=== PATIENT | female | born 2000 | race Caucasian/White ===

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

== ENCOUNTER 2019-09-08 16:18 | Emergency (ER) | payer OTHER, SELFPAY ==
[2019-09-08 16:30] VITALS: BP 142/90; PULSE 120; RESP 16; TEMP 37.7; O2SAT 98; BMI 32.9
[2019-09-08 16:38] VITALS: BP 142/90; PULSE 120; RESP 16; TEMP 37.7; O2SAT 98; BMI 33.0
--- NOTE | 2019-09-08 16:43 | HMH.EDUTC ---
[facility] [place] Disposition Clinical Impression: Dental abscess, Pain, dental Disposition: Home, Self-Care Condition on Discharge: Good Instructions: Tooth Abscess Additional Instructions: Make sure you have an appointment coming up with your dentist. Take the medications as directed. IF YOU START TO RUN A FEVER OR HAVE WORSENING SYMPTOMS, PLEASE GO STRAIGHT TO THE ER Prescriptions: Ibuprofen [Ibuprofen 800mg Tablet] 800 mg PO Q8HP PRN #30 tab PRN Reason: Moderate Pain Transmission Status: Received by [id number] Amoxicillin [Amoxicillin 500mg Tab] 500 mg PO TID 10 Days #30 tab Transmission Status: Received by [id number] Referrals: Romero Gilman MD [Primary Care Provider] - Forms: Work/School Release Time of Disposition: 16:49 Medical Decision Making - Medical Records Medical records reviewed: No: I reviewed the patient's medical records. - Arnold Inquiry Pt receiving controlled substance: No Vital Signs: 09/08/19 16:30 09/08/19 16:38 09/08/19 17:00 Temperature 99.8 F H 99.8 F H 99.8 F H Temperature Source Oral Oral Pulse Rate 120 H Pulse Rate [Left Radial] 120 H 120 H Respiratory Rate 16 16 16 Blood Pressure 142/90 H Blood Pressure [Right Arm] 142/90 H 142/90 H Blood Pressure Mean [Right Arm] 107 107 Blood Pressure Source [Right Arm] Automatic Cuff Blood Pressure Position [Right Arm] Sitting Sitting 02 Sat by Pulse Oximetry 98 98 Oxygen Delivery Method Room Air Room Air - Lab Data Lab results reviewed: Yes: I reviewed the patient's lab results. Orders (Tests/Meds): ED MEDICATIONS Discontinued Medications Generic Name Dose Route Start Last Admin Trade Name Freq PRN Reason Stop Dose Admin Ceftriaxone Sodium 1 gm 09/08/19 16:42 09/08/19 16:55 Rocephin 1gm Vial IM 09/08/19 16:43 1 gm ONCE ONE Administration Protocol Lidocaine HCl 0 ml 09/08/19 16:42 09/08/19 16:55 Lidocaine 1% 10ml Mdv IM 09/08/19 16:43 2.1 ml ONCE ONE Administration [facility] [place] HPI - General Stated complaint: absess tooth Time Seen by Provider: 09/08/19 16:43 Mode of Arrival: Ambulatory Source of Information: Patient Limitations: No Limitations Description of Symptoms (Recalled from Triage Doc. by RN): to ed per pvt car with c/o rt side facial pain and swelling states I think I have an abscessed tooth starting th. - History of Present Illness Provider Complaint: She c/o right upper jaw dental pain and swollen gums. She thinks that she has a dental abscess. She has an appointment with her dentist, but its not until 1 week away. She denies any fever or chills. - Related Data Previous Rx's Medication Instructions Recorded Amoxicillin [Amoxicillin 500mg Tab] 500 mg PO TID 10 Days #30 tab 09/08/19 Ibuprofen [Ibuprofen 800mg 800 mg PO Q8HP PRN #30 tab 09/08/19 Tablet] Allergies Allergy/AdvReac Type Severity Reaction Status Date / Time No Known Drug Allergies Allergy Unknown Verified 12/25/17 22:37 [NKDA] [facility] History - Hepatitis A Screen Attestation statement:: This patient has been screened for Hepatitis A risk factors. I have reviewed the patient's past medical history: Yes - Social History Alcohol Intake: never ROS Obtained: Yes All systems reviewed & no additional complaints - Constitutional Constitutional: Denies chills, Denies fever(s) - Eyes Eyes: Denies eye discharge - ENT Ears, Nose, Mouth, and Throat: Reports as per HPI - Cardiovascular Cardiovascular: Denies chest pain - Respiratory Respiratory: No chest congestion, No cough, No dyspnea, No coughing up blood, No stridor, No wheezing Physical Exam - General General appearance: alert, in no apparent distress - Head Head exam: atraumatic, normocephalic, normal inspection - Eye Eye exam: Present: normal appearance, PERRL, EOMI - ENT ENT exam: Present: normal exam, normal oropharynx, mucous membranes moist, TM's normal bilaterall
[2019-09-08 17:00] VITALS: BP 142/90; PULSE 120; RESP 16; TEMP 37.7; O2SAT 98
== END 2019-09-08 17:05 | disposition home or self-care (01) ==
PROVIDERS: Emergency Provider Nurse Practitioner Family; PCP Family Medicine
DX: K04.7 Periapical abscess without sinus (principal)
CPT/HCPCS: 96372; 99201

== ENCOUNTER 2020-01-20 16:31 | Emergency (ER) | payer OTHER, SELFPAY ==
[2020-01-20 16:42] VITALS: BP 140/96; PULSE 100; RESP 18; TEMP 36.9; O2SAT 98; BMI 33.3
--- NOTE | 2020-01-20 16:46 | HMH.EDUTC ---
[facility] Disposition Clinical Impression: Viral upper respiratory infection, Encounter for laboratory testing for COVID-19 virus Disposition: Home, Self-Care Condition on Discharge: Good Instructions: Common Cold, DI for Viral Upper Respiratory Infection -- Adult, Preventing the Spread of Coronavirus Discharge Instructions Additional Instructions: *Monitor Temp, Over the counter Motrin or Tylenol as directed/as needed Tylenol every 4 hours and Motrin every 6 hours (as long as your family doctor has told you that you can take it) for fever or pain. and straight to ER if unable to lower temp less than 101.0 after medication given *Warm salt water gargles may help to soothe the throat *Throat Lozenges *Warm fluids like tea with honey may help to soothe the throat *Sleep elevated *Humidifier/Vaporizer *Flonase 2 sprays in each nostril daily but be aware that it may take 2-3 days before you notice improvement *Bromfed may cause drowsiness. Know how it effects you (your child) before driving, caring for small child, or sending your child to school. Not other antihistamines/allergy medications while taking bromfed Your throat swab was sent for culture. Those results are typically sent to your primary care. Be sure to follow up in 2-3 days with your family doctor/primary care physician if no improvement so they can review those result and treat if necessary. If you don?t have a primary care doctor, I recommend you get one but in the mean time, you will have to return to a walk in clinic Follow up IMMEDIATELY for new or worsening symptoms or no Noticeable improvement over the next 48-72 hours. 911 for difficulty breathing or swallowing You was tested for today for COVID19 your test result should be back later this evening, you may call back later this evening to see if your test results are back and the result You was given a handout with instructions for Self Quarantine and Self isolation for while you wait on test results and what to do if they are positive Prescriptions: Fluticasone Propionate [Flonase 50mcg nasal spray 16gm] 1 spr NS DAILY #1 bottle Transmission Status: Received by [id number] Referrals: Romero Gilman MD [Primary Care Provider] - As needed Forms: Work/School Release Time of Disposition: 16:56 Medical Decision Making - Arnold Inquiry Pt receiving controlled substance: No Arnold was queried for this patient: No Vital Signs: 01/20/20 16:42 Temperature 98.5 F Temperature Source Oral Pulse Rate [Radial] 100 H Respiratory Rate 18 Blood Pressure [Right Arm] 140/96 H Blood Pressure Mean [Right Arm] 110 Blood Pressure Source [Right Arm] Automatic Cuff Blood Pressure Position [Right Arm] Sitting 02 Sat by Pulse Oximetry 98 Oxygen Delivery Method Room Air - Lab Data Lab results reviewed: Yes: I reviewed the patient's lab results. Orders (Tests/Meds): ORDERS Category Date Time Status Covid-19 Nasal PCR ([facility]) Routine Lab 01/20/20 16:50 Received [facility] HPI - General Stated complaint: Fever, sore throat, headache Time Seen by Provider: 01/20/20 16:46 Mode of Arrival: Ambulatory Source of Information: Patient Limitations: No Limitations Description of Symptoms (Recalled from Triage Doc. by RN): felt feverish yesterday, sore throat, nasal drainage HEENT Symptoms (Recalled from RN notes): Yes Resp Symptoms (Recalled from RN notes): No Skin Symptoms (Recalled from RN notes): No MS Symptoms (Recalled from RN notes): No Functional Status (Recalled from RN notes): wnl - History of Present Illness Provider Complaint: Patient state that she felt like she may have had a fever yesterday and having sore and scratchy throat State that today she was still having scratchy sore throat, nasal congestion and drainage along with feeling flush States that someone she works with was sick last week and was tested but unsure if she was positive or not - Related Data Previous Rx's Medication Instructions Record
[2020-01-20 17:07] VITALS: BP 140/96; PULSE 100; RESP 18; TEMP 36.9; O2SAT 98
[2020-01-20 18:05] LABS: UTC Strep Screen (Rapid) Negative (Negative)
== END 2020-01-20 17:08 | disposition home or self-care (01) ==
PROVIDERS: Emergency Provider Nurse Practitioner; PCP Family Medicine
DX: Z20.828 Contact with and (suspected) exposure to other viral communicable diseases (principal); J06.9 Acute upper respiratory infection, unspecified
CPT/HCPCS: 87880; 99202; U0003

== ENCOUNTER 2021-05-28 15:46 | Emergency (ER) | payer BC, OTHER, SELFPAY ==
[2021-05-28 16:00] VITALS: BP 133/89; PULSE 105; RESP 20; TEMP 36.9; O2SAT 98; BMI 34.9
--- NOTE | 2021-05-28 16:17 | HMH.EDUTC ---
[facility] [place] Disposition Clinical Impression: Viral upper respiratory illness Disposition: Home, Self-Care Condition on Discharge: Good Instructions: DI for COVID-19 (Suspected or Confirmed ), Preventing the Spread of Coronavirus Discharge Instructions Additional Instructions: *Monitor Temp, Over the counter Motrin or Tylenol as directed/as needed Tylenol every 4 hours and Motrin every 6 hours (as long as your family doctor has told you that you can take it) for fever or pain. and straight to ER if unable to lower temp less than 101.0 after medication given *Warm salt water gargles may help to soothe the throat *Throat Lozenges *Warm fluids like tea with honey may help to soothe the throat *Sleep elevated *Humidifier/Vaporizer Your throat swab was sent for culture. Those results are typically sent to your primary care. Be sure to follow up in 2-3 days with your family doctor/primary care physician if no improvement so they can review those result and treat if necessary. If you don?t have a primary care doctor, I recommend you get one but in the mean time, you will have to return to a walk in clinic Follow up IMMEDIATELY for new or worsening symptoms or no Noticeable improvement over the next 48-72 hours. 911 for difficulty breathing or swallowing You were tested for today for COVID19 your test result should be back in the next 24-48 hours, you may check your results on the [facility] my Health P Make sure to take your Vitamins Vit. C Vit D and Zinc if you can take them Referrals: Sami Velez MD [Primary Care Provider] - As needed Forms: Work/School Release Time of Disposition: 16:27 Medical Decision Making - Arnold Inquiry Pt receiving controlled substance: No Arnold was queried for this patient: No Vital Signs: 05/28/21 16:00 Temperature 98.4 F Temperature Source Oral Pulse Rate [Right Brachial] 105 H Respiratory Rate 20 Blood Pressure [Right Arm] 133/89 Blood Pressure Mean [Right Arm] 103 Blood Pressure Source [Right Arm] Automatic Cuff Blood Pressure Position [Right Arm] Sitting 02 Sat by Pulse Oximetry 98 Oxygen Delivery Method Room Air - Lab Data Lab results reviewed: Yes: I reviewed the patient's lab results. Orders (Tests/Meds): ORDERS Category Date Time Status Covid-19 Nasal PCR ([facility]) Routine Lab 05/28/21 16:05 Received [facility] [place] HPI - General Stated complaint: Covid test Time Seen by Provider: 05/28/21 16:17 Mode of Arrival: Ambulatory Source of Information: Patient Limitations: No Limitations Description of Symptoms (Recalled from Triage Doc. by RN): PATIENT C/O SORE THROAT, RUNNY NOSE, HEADACHE, FEVER AND BODY ACHES. RECENTLY EXPOSED TO COVID HEENT Symptoms (Recalled from RN notes): Yes Resp Symptoms (Recalled from RN notes): No Skin Symptoms (Recalled from RN notes): No MS Symptoms (Recalled from RN notes): No Functional Status (Recalled from RN notes): WNL - History of Present Illness Provider Complaint: Patient states that she was around someone last week that has tested positive for COVID States she has been having body aches, chills, sore throat fever, nasal congestion and bodyaches States that she was worried that she may have COVID so she wanted to get checked - Related Data Home Medications Medication Instructions Recorded Confirmed No Known Home Medications 08/15/20 05/28/21 Allergies Allergy/AdvReac Type Severity Reaction Status Date / Time No Known Drug Allergies Allergy Unknown Verified 08/15/20 13:59 [NKDA] - Worker's Comp Is this a Worker's Comp case?: No [facility] History - Hepatitis A Screen Drug use history?: No High risk sexual behaviors?: No History of sexually transmitted infection?: No Currently employed?: No Childcare worker?: No Do you have indoor plumbing?: Yes Do you have electricity?: Yes Attestation statement:: This patient has been screened for Hepatitis A risk factors. I have reviewed the patient's past medical history: Yes
[2021-05-28 16:20] LABS: UTC Strep Screen (Rapid) Negative (Negative)
[2021-05-28 16:30] VITALS: BP 133/89; PULSE 105; RESP 20; TEMP 36.9; O2SAT 98
== END 2021-05-28 16:36 | disposition home or self-care (01) ==
PROVIDERS: Emergency Provider Nurse Practitioner; PCP Family Medicine
DX: U07.1 COVID-19 (principal); J06.9 Acute upper respiratory infection, unspecified; J02.9 Acute pharyngitis, unspecified; R51.9 Headache, unspecified; M79.10 Myalgia, unspecified site
CPT/HCPCS: 87880; 99212; C9803; G0463; U0003; U0005

== ENCOUNTER 2022-01-11 16:29 | Emergency (ER) | payer BC, OTHER, SELFPAY ==
[2022-01-11 18:56] VITALS: BP 139/92; PULSE 76; RESP 19; TEMP 37; O2SAT 98; BMI 36.2
[2022-01-11 18:57] LABS: UTC Strep Screen (Rapid) Positive (Negative)
--- NOTE | 2022-01-11 19:03 | EXP.UTC ---
Discharge Plan Disposition Patient Disposition: Home, Self-Care Condition: Good Prescriptions Prescriptions: New amoxicillin 875 mg tablet 875 mg PO BID Qty: 20 0RF prednisone 20 mg tablet 20 mg PO BID Qty: 10 0RF Referrals Follow up/Referrals: Romero Gilman MD [Primary Care Provider] - See instructions Activity Restrictions/Add. Instructions Additional Instructions/Restrictions: *Monitor Temp, Over the counter Motrin or Tylenol as directed/as needed Tylenol every 4 hours and Motrin every 6 hours (as long as your family doctor has told you that you can take it) for fever or pain. and straight to ER if unable to lower temp less than 101.0 after medication given *Warm salt water gargles may help to soothe the throat *Throat Lozenges? *Warm fluids like tea with honey may help to soothe the throat? *Sleep elevated *Humidifier/Vaporizer *If you did not take Penicillin shot or was unable to, start taking antibiotic immediately and make sure that you take it for the FULL length of time although you should start to feel better in 24-48 hours *change toothbrush and toothpaste 24-48 hours after starting to take antibiotics so you do not reinfect yourself Monitor Temp. Tylenol and/or Ibuprofen as needed. ER if fever is no less than 101 despite alternating Tylenol and Ibuprofen * Encourage fluids, water, Gatorade, powerade, pedialyte if /toddler/or child *Cold fluids, popsicles and ice cream may feel good on his throat Follow up IMMEDIATELY for new or worsening symptoms or no Noticeable improvement over the next 48-72 hours. 911 for difficulty breathing or swallowing Clinical Impressions Clinical Impression: Strep throat Stand Alone Forms Stand Alone Forms: Work/School Release Instructions Patient Instructions: DI for Strep Throat, Strep Throat Discharge ED Provider: Kenna Maharaj [facility] General Stated complaint: sore throat Mode of Arrival: Ambulatory Source of Information: Patient Limitations: No Limitations Time Seen by Provider: 01/11/22 19:03 Description of Symptoms (Recalled from Triage Doc. by RN): soreness when swallow tonsils swollen HEENT Symptoms (Recalled from RN notes): Yes Resp Symptoms (Recalled from RN notes): No Skin Symptoms (Recalled from RN notes): No MS Symptoms (Recalled from RN notes): No Functional Status (Recalled from RN notes): n/a History of Present Illness Provider Complaint: Patient states that she has been having sore throat and her tonsils swollen for over a week States that today they was hurting worse so she came in this evening to get checked for strep throat Related Data Previous Rx's Medication Instructions Recorded amoxicillin 875 mg tablet 875 mg PO BID #20 tabs 01/11/22 prednisone 20 mg tablet 20 mg PO BID #10 tabs 01/11/22 Allergies Allergy/AdvReac Type Severity Reaction Status Date / Time No Known Drug Allergies Allergy Unknown Verified 08/15/20 13:59 [NKDA] Worker's Comp Is this a Worker's Comp case?: No PFSH PFSH Social History Smoking Status: Never smoker alcohol intake: never current occupational status: other Travel in the last 8 weeks: None housing: house ROS Obtained: Yes All systems reviewed & no additional complaints except as documented and Yes Systems reviewed as appropriate & no additional complaints except as documented Constitutional Constitutional: Reports system reviewed and no additional complaints, except as documented, Reports as per HPI and Reports fever(s) ENT Ears, Nose, Mouth, and Throat: Reports system reviewed and no additional complaints, except as documented, Reports as per HPI and Reports sore throat Cardiovascular Cardiovascular: Reports system reviewed and no additional complaints, except as documented and Reports as per HPI Respiratory Respiratory: Reports system reviewed and no additional complaints, except as documented and Reports as per HPI Gastrointestinal Gastroi
[2022-01-11 19:41] VITALS: BP 139/92; PULSE 76; RESP 19; TEMP 37; O2SAT 98
== END 2022-01-11 19:41 | disposition home or self-care (01) ==
PROVIDERS: Emergency Provider Nurse Practitioner; PCP Family Medicine
DX: J02.0 Streptococcal pharyngitis (principal); B95.0 Streptococcus, group A, as the cause of diseases classified elsewhere
CPT/HCPCS: 87880; 99213; G0463

== ENCOUNTER 2023-03-10 12:26 | Emergency (ER) | payer BC, SELFPAY ==
[2023-03-10 13:28] LABS: UTC Strep Screen (Rapid) Negative (Negative)
[2023-03-10 13:29] LABS: UTC Influenza A Antigen Negative (Negative); UTC Influenza B Antigen Negative (Negative)
[2023-03-10 13:30] VITALS: BP 139/89; PULSE 109; RESP 20; TEMP 38.3; O2SAT 97; BMI 40.4
--- NOTE | 2023-03-10 13:46 | EXP.UTC ---
Discharge Plan Disposition Patient Disposition: Home, Self-Care Condition: Good Prescriptions Prescriptions: New hwigeijgnuzwmva-[id number]-[id number] [Bromfed DM] 2-30-10 mg/5 mL Syrup 5 ml PO Q6H PRN (Reason: Cough) Qty: 240 0RF ondansetron 4 mg Tablet,Disintegrating 4 mg PO Q8H PRN (Reason: Nausea) Qty: 12 0RF Referrals Follow up/Referrals: Romero Gilman MD [Primary Care Provider] - See instructions Activity Restrictions/Add. Instructions Additional Instructions/Restrictions: Drink plenty of fluids. Take tylenol or ibuprofen for pain or fever. Take the medications as directed. Follow up with your regular doctor. GO TO THE ER FOR ANY WORSENING SYMPTOMS Clinical Impressions Clinical Impression: Acute viral syndrome Stand Alone Forms Stand Alone Forms: Work/School Release Instructions Patient Instructions: DI for Viral Syndrome Discharge ED Provider: Bharathi Garsia [facility] General Stated complaint: body aches, sore throat, SOA Time Seen by Provider: 03/10/23 13:45 History of Present Illness Provider Complaint: She states that for the past 2 days she has had malaise, chills, scratchy throat, and a dry cough. Related Data Previous Rx's Medication Instructions Recorded ntnnnuaockxkfwt-tvighgvgjcoafsq-NS 5 ml PO Q6H PRN Cough #240 mL 03/10/23 2 mg-30 mg-10 mg/5 mL oral syrup (Bromfed DM) ondansetron 4 mg disintegrating 4 mg PO Q8H PRN Nausea #12 tabs 03/10/23 tablet Allergies Allergy/AdvReac Type Severity Reaction Status Date / Time No Known Drug Allergies Allergy Unknown Verified 04/23/22 15:17 [NKDA] [facility] Disclaimer: The information contained in this section may have been updated after the patient was seen, as this information can be updated by other users. Medical History (Updated 03/10/23 @ 13:57 by Bharathi Garsia APRN) Dental abscess Encounter for laboratory testing for COVID-19 virus Pain, dental Spider bite Strep throat Viral upper respiratory infection Social History Smoking Status: Never smoker alcohol intake: never current occupational status: other Travel in the last 8 weeks: None housing: house ROS Obtained: Yes All systems reviewed & no additional complaints except as documented Constitutional Constitutional: Reports chills and Reports fever(s) Eyes Eyes: Denies eye discharge ENT Ears, Nose, Mouth, and Throat: Reports as per HPI Cardiovascular Cardiovascular: Denies chest pain Respiratory Respiratory: Denies chest congestion and Reports cough Gastrointestinal Gastrointestingal: Reports nausea; Denies abdominal pain, constipation, cramping, diarrhea or vomiting Musculoskeletal Musculoskeletal: Denies arthralgias Integumentary/Breasts Skin/Breast: Denies rash Neurologic Neurologic: Denies paresthesias Physical Exam General General appearance: alert and in no apparent distress Head Head exam: atraumatic, normocephalic and normal inspection Eye Eye exam: Present normal appearance, PERRL and EOMI ENT ENT exam: Present normal exam, normal oropharynx, mucous membranes moist, TM's normal bilaterally and normal external ear exam Neck Neck exam: Present normal inspection, full ROM and trachea midline; Absent meningismus or lymphadenopathy Chest Chest inspection: Present normal inspection and symmetric chest wall rise; Absent tenderness Respiratory Respiratory exam: Present normal lung sounds bilaterally; Absent respiratory distress Cardiovascular Cardiovascular exam: Present regular rate and normal rhythm; Absent JVD Abdominal Exam Abdominal exam: Present soft and normal bowel sounds; Absent distention, tenderness or guarding Extremities Exam Extremities exam: Present normal inspection, full ROM and normal capillary refill; Absent calf tenderness Back Exam Back exam: Present normal inspection; Absent tenderness Neurological Exam Neurological exam: Present alert and oriented
[2023-03-10 13:59] VITALS: BP 139/89; PULSE 109; RESP 20; TEMP 38.3; O2SAT 97
== END 2023-03-10 14:00 | disposition home or self-care (01) ==
PROVIDERS: Emergency Provider Nurse Practitioner Family; PCP Family Medicine
DX: U07.1 COVID-19 (principal); R06.02 Shortness of breath; R50.9 Fever, unspecified; R07.0 Pain in throat; R05.9 Cough, unspecified; R53.81 Other malaise
CPT/HCPCS: 87635; 87804; 87880; 99212; 99214; G0463